=== PATIENT | female | born 1980 | race Caucasian/White ===

== ENCOUNTER 2018-05-01 15:17 | Outpatient (REF) | payer MEDICAID, SELFPAY ==
[2018-05-04 14:25] LABS: Chlamydia Result Negative; GC Result Negative; Specimen Description CERVIX
== END 2018-05-01 15:37 ==
LOC: LBN 15:17
PROVIDERS: PCP Family Medicine; Visit Provider Nurse Practitioner Women's Health
DX: Z11.3 Encounter for screening for infections with a predominantly sexual mode of transmission (principal)
CPT/HCPCS: 87491; 87591

== ENCOUNTER 2018-05-12 01:10 | Outpatient (CLI) | payer MEDICAID, SELFPAY ==
--- NOTE | 2018-05-12 13:53 | DI.US_ITS ---
SYMPTOMS/DIAGNOSIS: PELVIC PAIN, R10.2 PELVIC ULTRASOUND: Pelvic ultrasound was performed transabdominally and transvaginally. Please see the accompanying data sheet for measurements of the pelvic structures. There are a couple of questionable echogenic foci in the right kidney, which may represent nonobstructing calculi. No evidence of hydronephrosis. Left kidney unremarkable in appearance by ultrasound criteria. The ovaries have a normal follicular appearance. Uterus is unremarkable in appearance except for a questionable myometrial deformity consistent with old scar, please correlate clinically. Endometrial stripe is about 5 mm in thickness and appears homogeneous. No free fluid identified in the cul-de-sac. CONCLUSION: Essentially negative pelvic ultrasound. Probable nonobstructing right renal calculi.
== END 2018-05-12 01:30 ==
PROVIDERS: PCP Family Medicine; Visit Provider Nurse Practitioner Women's Health
DX: R10.2 Pelvic and perineal pain (principal); N20.0 Calculus of kidney
CPT/HCPCS: 76830; 76856

== ENCOUNTER 2019-03-12 14:21 | Outpatient (REF) | payer MEDICAID, SELFPAY ==
[2019-03-15 15:02] LABS: Chlamydia Result Negative (Negative); GC Result Negative (Negative)
== END 2019-03-12 14:41 ==
LOC: LBN 14:21
PROVIDERS: PCP Family Medicine; Visit Provider Nurse Practitioner Family
DX: Z11.3 Encounter for screening for infections with a predominantly sexual mode of transmission (principal)
CPT/HCPCS: 87491; 87591

== ENCOUNTER 2020-05-26 16:53 | Outpatient (REF) | payer MEDICAID, SELFPAY | END 2020-05-26 16:54 | disposition home or self-care (01) | LOC: LBN 16:53 | PROVIDERS: PCP Family Medicine; Visit Provider Nurse Practitioner Family | DX: R31.9 Hematuria, unspecified (principal) | CPT/HCPCS: 87086 ==

== ENCOUNTER 2020-06-02 12:19 | Outpatient (REF) | payer MEDICAID, SELFPAY ==
--- NOTE | 2020-06-02 11:30 | PAPFT_PTH ---
PATIENT: Karla Koenig LOC: [facility] U#:[id number] AGE/SX: 39/F ROOM: RE06/02/[address]: JERMAINE Bustamante : 1980 BED: DIS: 06/02/2020 SPEC #: [id number] RECD: 06/02/20 12:52 STATUS: [place] REQ #: [id number] SILVESTRE: 06/02/20 11:[address]: Geno Delgado DEPT: [facility] Cytology RECD BY: Naomie Cope ENTERED: 06/02/20 12:52 SP TYPE: PAPFT OTHR DR: Pawan Rivera Tissues: 1 - CX/ENDOCX FOR PAP SMEARS Procedures: PAP THIN PREP/UVM Screening HPV DNA PROBE Comments: [id number]
[2020-06-02 14:06] LABS: Bacteria Few HPF (Negative); C & S Indicated? No/Sq. Contamination; Casts Negative LPF (Negative); Crystals Many Amorphous HPF (Negative); Epithelial Cells Many HPF (Negative); Mucus Heavy (Negative); RBC 0-2 HPF (0-2); WBC 0-2 HPF (0-5)
== END 2020-06-02 12:20 | disposition home or self-care (01) ==
LOC: LBN 12:19
PROVIDERS: PCP Family Medicine; Visit Provider Nurse Practitioner Family
DX: R80.9 Proteinuria, unspecified (principal); Z12.4 Encounter for screening for malignant neoplasm of cervix; Z11.51 Encounter for screening for human papillomavirus (HPV)
CPT/HCPCS: 88142; 81015; 87624

== ENCOUNTER 2020-06-23 04:42 | Outpatient (CLI) | payer MEDICAID, SELFPAY ==
--- NOTE | 2020-06-23 08:45 | DI.MAMMO_ITS ---
Exam(s) MAMMO SCREENING EXAM: MAMMO SCREENING CLINICAL HISTORY: screening,z12.39 TECHNIQUE: Bilateral full field digital CC and MLO mammographic images were obtained with 3D tomosyn thesis and utilizing computer aided detection (CAD). COMPARISON: This is a baseline examination. FINDINGS: Masses/Architectural Distortion: None seen. Microcalcifications: No suspicious pleomorphic-type are seen. Skin Thickening/Nipple Retraction: None. IMPRESSION: 1. No specific features of malignancy noted. 2. Unless there is more urgent need, screening mammography is recommended, as per [employer] guidelines. BI-RADS Category 1 - Negative Breast Density - Category B - Scattered areas of fibroglandular density Breast density category C or D implies that the patient has dense breast tissue. Dense breast tissue is very common and is not abnormal but dense breast tissue can make it harder to find cancer on a ma mmogram. Also, dense breast tissue may increase their breast cancer risk. This information about the result of the mammogram report was provided to the patient to raise their awareness. Use this report when you speak with the patient about their risks for breast cancer, which includes their family hist ory. At that time, you may recommend for more screening tests (Ultrasound or MRI) as they might be us eful based on their risk. A negative radiographic report should not delay biopsy if a dominant or clinically suspicious mass is present. Up to ten percent of cancers are not identified on mammography. A negative report may reinforce clinical impression. Adenosis and dense breasts may obscure an underlying neoplasm. False positive reports average 6 to 10%. Patient will receive a letter notifying them of these results.
== END 2020-06-23 05:02 ==
PROVIDERS: PCP Family Medicine; Visit Provider Nurse Practitioner Family
DX: Z12.31 Encounter for screening mammogram for malignant neoplasm of breast (principal)
CPT/HCPCS: 77063; 77067

== ENCOUNTER 2022-01-16 03:37 | Outpatient (CLI) | payer MEDICAID, SELFPAY ==
[2022-01-16 13:51] LABS: HCT 43.9 % (36.0-46.0); HGB 14.3 g/dL (11.2-15.7); MCH 29.4 pg (27.0-33.0); MCHC 32.6 % (32.0-36.0); MCV 90 fL (80-95); MPV 11.5 fL (8.0-11.0); Platelet Count 236 10^3/uL (130-400); RBC 4.87 10^6/uL (3.93-5.22); RDW 12.7 % (11.7-14.6); RDW-SD 41.5 fL; WBC 7.51 10^3/uL (4.4-10.8)
[2022-01-16 15:10] LABS: ALT 30 U/L (14-59); AST 17 U/L (15-37); Albumin 4.2 g/dL (3.4-5.0); Alkaline Phosphatase 77 U/L (46-116); Anion Gap 9.3 mmol/L (3-11); BUN 17 mg/dL (7-18); Bilirubin, Total 0.4 mg/dL (0.2-1.0); CO2 27.7 mmol/L (21.0-32.0); CREATININE 0.8 mg/dL (0.55-1.02); Calcium 9.3 mg/dL (8.5-10.1); Calculated LDL 103 mg/dL (<100); Chloride 101 mmol/L (98-107); Cholesterol 211 mg/dL (<200); Estimated GFR 94.28 (mL/min/1.73m2); Glucose 111 mg/dL (74-106); HDL Cholesterol 55 mg/dL (40-60); Potassium 3.7 mmol/L (3.5-5.1); Sodium 138 mmol/L (136-145); Total Protein 7.8 g/dL (6.4-8.2); Triglyceride 265 mg/dL (<150)
== END 2022-01-16 03:38 | disposition home or self-care (01) ==
LOC: LBO 03:37
PROVIDERS: Visit Provider Obstetrics & Gynecology Gynecology
DX: R53.83 Other fatigue (principal); R63.5 Abnormal weight gain; R03.0 Elevated blood-pressure reading, without diagnosis of hypertension; E78.89 Other lipoprotein metabolism disorders
CPT/HCPCS: 36415; 80053; 80061; 85027; 84443

== ENCOUNTER 2024-12-27 22:32 | Observation (INO) | payer BC, SELFPAY ==
[2024-12-27 22:35] VITALS: BP 198/122; PULSE 89; RESP 21; TEMP 36.4; O2SAT 96
[2024-12-27 22:39] VITALS: BP 200/112; PULSE 84; RESP 18; O2SAT 97
--- NOTE | 2024-12-27 23:02 | NUR.NOTE ---
Nursing Note: Patient reports that she was seen at [facility] on 12/25/24 when dog bite initially occurred. Patient further reports that [facility] took all of the information regarding the dog and reported it to the Health officer.
[2024-12-27] MEDS: Ketorolac 15 MG/ML VIAL IVP (23:39)
[2024-12-27] MEDS: Normal Saline 1,000 ML 1000 ML IV (23:40)
[2024-12-27] MEDS: ACETAMINOPHEN 1,000 MG/100 ML BAG 400 MG IVPB (23:40)
[2024-12-27] MEDS: CLINDAMYCIN 600 MG/50 ML BAG 100 MG IVPB (23:41)
[2024-12-27 23:47] LABS: Abs Immature Grans 0.06 10^3/uL (0.0-0.06); HCT 42.9 % (36.0-46.0); HGB 14.2 g/dL (11.2-15.7); Immature Grans % 0.5 %; MCH 29.7 pg (27.0-33.0); MCHC 33.1 % (32.0-36.0); MCV 90 fL (80-95); MPV 11.4 fL (8.0-11.0); Platelet Count 238 10^3/uL (130-400); RBC 4.78 10^6/uL (3.93-5.22); RDW 13.2 % (11.7-14.6); RDW-SD 43.1 fL; WBC 11.68 10^3/uL (4.4-10.8)
[2024-12-28] VITALS (9 sets, daily range): BP systolic 136–177; BP diastolic 88–111; PULSE 66–85; RESP 17–19; TEMP 36–37.1; O2SAT 96–100
--- NOTE | 2024-12-28 00:09 | ED.GENADUL_ITS ---
Discharge Plan Disposition Patient Disposition: Admit to [facility] Condition: Good Discharge Details Clinical Impression: Cellulitis of arm, left, Dog bite of arm Primary Care Provider: Geno Whitfield ED Provider: Christofer Browning Home Meds and New Rx's Prescriptions: No Action albuterol sulfate 90 mcg/actuation HFA aerosol inhaler 2 puff IH Q6H PRN Mirena 20 mcg/24 hours (5 yrs) 52 mg intrauterine device 1 device IY ONCE fluticasone propion-salmeterol [Advair HFA] 115-21 mcg/actuation HFA aerosol inhaler See Rx Instructions .ROUTE .COMPLEX Qty: 12 4RF Dose Instruction: INHALE 2 PUFFS BY MOUTH TWICE DAILY NEEDED FOR ASTHMA EXACERBATION Rx Instructions: INHALE 2 PUFFS BY MOUTH TWICE DAILY NEEDED FOR ASTHMA EXACERBATION chlorthalidone 15 mg tablet 30 mg PO DAILY Qty: 90 2RF multivitamin [Multi-Day] 1 EACH tablet 1 tab PO DAILY doxycycline hyclate 100 mg capsule 100 mg PO BID HPI General Date/Time Provider Initiated Documentation: 12/27/24 22:45 . HPI Narrative: This is a very pleasant 44-year-old female with a past medical history of hypertension, asthma, who presents today for a dog bite. Patient was at a friend's house 72 hours ago on Friday when a dog accidentally bit her arm on the left. She was seen that evening at [facility]. Tetanus is up to date. She was assessed, and because of the dog bite and her allergies to Augmentin (which was documented hives) she was very reasonably started on doxycycline. She received a dose in the emergency department, and then she had an oral dose for the morning of Friday. Unfortunately because of her pharmacy not being able to fill it she did not receive any nighttime dose. Her antibiotic and started taking the doxycycline as prescribed. she noticed worsening redness on Friday in the afternoon, and went back to [facility] where she received ceftriaxone and metronidazole IV. This was at 3 PM. She went home, and over the next 78 hours the redness significantly worsened and spread past where it had previously been in been marked while in the ED. She had no fever or chills. She has also noticed development of pain when she moves her wrist or moves her fingers. She denies any other complaints. No other modifying factors. She has taken occasional NSAID therapy as prescribed. Patient was recommended to have a longer doxycycline course considering the worsening infection. There is no evidence of additional prescribed antibiotics at this stage so. Of note the dog's rabies vaccine is up-to-date, the dog had no other concerning past medical history. Related Data Home Medications Medication Instructions Recorded Confirmed multivitamin (Multi-Day tablet) 1 tab PO DAILY 7 12/27/24 albuterol sulfate 90 mcg/actuation 2 puff inhalation Q 6H PRN 03/12/19 12/27/24 aerosol inhaler levonorgestrel (Mirena) 1 device intrauterine ONCE 0 04/05/19 12/27/24 fluticasone propionate 115 See Rx Instructions .Route 02/20/22 12/27/24 mcg-salmeterol 21 mcg/actuation .COMPLEX #12 grams HFA inhaler (Advair HFA) chlorthalidone 15 mg tablet 30 mg (2 x 15 mg) PO DAILY #90 tabs 04/05/22 12/27/24 Held on 12/27/24. Instructions: Prescription Finished doxycycline hyclate 100 mg capsule 100 mg PO BID 12/2712/27/24 Previous Rx's Medication Instructions Recorded fluticasone propionate 115 See Rx Instructions .Route 02/20/22 mcg-salmeterol 21 mcg/actuation .COMPLEX #12 grams HFA inhaler (Advair HFA) chlorthalidone 15 mg tablet 30 mg (2 x 15 mg) PO DAILY #90 tabs 04/05/22 Held on 12/27/24. Instructions: Prescription Finished Allergies Allergy/AdvReac Type Severity Reaction Status Date / Time Iodinated Contrast Media Allergy Severe Anaphylaxis Verified 12/27/24 22:44 sulfamethoxazole (From Allergy Intermediate hives Verified 12/27/24 22:44 Bactrim) trimethoprim (From Bactrim) Allergy Intermediate hives Verified 12/27/24 22:44 amoxicillin (From Augmentin) AdvReac Intermediate Hives Verified 12/27/24 22:44 clavulanic acid (From AdvReac Intermediate Hives Verified 12/27/24 22:44 Augmentin) nitrofurantoin AdvReac Intermediate Hives Verified 12/27/24 22:44 Sulfa (Sulfonamide AdvReac Intermediate Hives Verified 12/27/24 22:44 Antibiotics) Oysters AdvReac Intermediate Vomitting Uncoded 12/27/24 22:44 Scallops AdvReac Mild Itchy Uncoded 12/27/24 22:44 Throad & Mouth General Stated Complaint: AnimalBite RICHIE: 3 Exam Narrative Exam Narrative: 1.Const: Well-nourished, Well-developed, appearing stated age 2.Eyes: PERRL, no conjunctival injection, and symmetrical lids. 3.ENT: Atraumatic external nose and ears. Moist MM. Neck: Symmetric, trachea midline, No thyromegaly. 4.CVS: +S1/S2, Peripheral pulses 2+ and equal in all extremities. Brisk capillary refill in all extremities. 5.RESP: Unlabored respiratory effort. Clear to auscultation bilaterally. No wheezes rales or rhonchi 6.GI: Soft, Nontender/Nondistended, No hepatosplenomegaly. No guarding or rebound. 7.MSK: Patient demonstrates a hand held in normal position, no passive flexed positioning. Mild tenderness throughout the forearm over the areas of erythema. Normal heavy lift rigger strength however pain is notably elicited with maximum extension of the fingers and wrist. No sausage shaped digits. 8.Skin: Warm, Dry. Ventral left forearm demonstrates subcentimeter laceration with no active oozing. 2 small puncture wounds on the dorsal aspect of the forearm with no oozing or discharge. Additionally there is notable erythema throughout the ventral aspect of the forearm traveling up the forearm and past the aforementioned markings done at [facility]. Dimensions are roughly 5 cm x 9 cm. 9.Neuro: rehabilitation program coordinator II-XII grossly intact. Sensation grossly intact, no focal neurologic deficits. 10.Psych: (AAO) x3. Appropriate mood and affect Course Vital Signs Vital signs: Vital Signs Temperature 36.4 C 12/27/24 22:35 Pulse 89 12/27/24 22:35 Respiratory Rate 21 12/27/24 22:35 Blood Pressure 198/122 H 12/27/24 22:35 Pulse Oximetry 96 12/27/24 22:35 Temperature 36.4 C 12/27/24 22:35 Temperature Source Oral 12/27/24 22:35 Pulse 84 12/27/24 22:39 Respiratory Rate 18 12/27/24 22:39 Blood Pressure 200/112 H 12/27/24 22:39 Blood Pressure Position Sitting 12/27/24 22:39 Pulse Oximetry 97 12/27/24 22:39 Oxygen Delivery Method Room Air 12/27/24 22:39 Oxygen Flow Rate 0 12/27/24 22:35 Pain Level 2 12/27/24 22:39 Lab/Test Results Lab/Test Results: 12/27/24 23:38 Blood Blood Culture - Pending 12/27/24 23:30 Blood Blood Culture - Pending Laboratory Tests Range/Units 12/27/24 23:38 WBC (4.4-10.8) 10^3/uL 11.68 H RBC (3.93-5.22) 10^6/uL 4.78 Hgb (11.2-15.7) g/dL 14.2 Hct (36.0-46.0) % 42.9 MCV (80-95) fL 90 MCH (27.0-33.0) pg 29.7 MCHC (32.0-36.0) % 33.1 RDW (11.7-14.6) % 13.2 Plt Count (130-400) 10^3/uL 238 MPV (8.0-11.0) fL 11.4 H Immature Gran % % 0.5 Neutrophils % % 68.8 Lymphocytes % % 17.7 Monocytes % % 6.5 Eosinophils % % 5.6 Basophils % % 0.9 Nucleated RBC % (0.0-0.3) % 0.0 Absolute Neutrophils (1.2-6.7) 10^3/uL 8.04 H Absolute Lymphocytes (1.2-3.4) 10^3/uL 2.07 Absolute Monocytes (0.1-0.8) 10^3/uL 0.76 Absolute Eosinophils (0.0-0.7) 10^3/uL 0.65 Absolute Basophils (0.0-0.2) 10^3/uL 0.11 VBG Lactate (<or=2.0) mmol/L 0.9 Medical Decision Making This is a very pleasant 44-year-old female with a past medical history of hypertension, asthma, who presents today for a dog bite. Patient was at a friend's house 72 hours ago on Friday when a dog accidentally bit her arm on the left. She was seen that evening at [facility]. Tetanus is up to date. She was assessed, and because of the dog bite and her allergies to Augmentin (which was documented hives) she was very reasonably started on doxycycline. She received a dose in the emergency department, and then she had an oral dose for the morning of Friday. Unfortunately because of her pharmacy not being able to fill it she did not receive any nighttime dose. Her antibiotic and started taking the doxycycline as prescribed. she noticed worsening redness on Friday in the afternoon, and went back to [facility] where she received ceftriaxone and metronidazole IV. This was at 3 PM. She went home, and over the next 78 hours the redness significantly worsened and spread past where it had previously been in been marked while in the ED. She had no fever or chills. She has also noticed development of pain when she moves her wrist or moves her fingers. She denies any other complaints. No other modifying factors. She has taken occasional NSAID therapy as prescribed. Patient was recommended to have a longer doxycycline course considering the worsening infection. There is no evidence of additional prescribed antibiotics at this stage so. Of note the dog's rabies vaccine is up-to-date, the dog had no other concerning past medical history. Patient demonstrates a hand held in normal position, no passive flexed positioning. Mild tenderness throughout the forearm over the areas of erythema. Normal heavy lift rigger strength however pain is notably elicited with maximum extension of the fingers and wrist. No sausage shaped digits. Warm, Dry. Ventral left forearm demonstrates subcentimeter laceration with no active oozing. 2 small puncture wounds on the dorsal aspect of the forearm with no oozing or discharge. Additionally there is notable erythema throughout the ventral aspect of the forearm traveling up the forearm and past the aforementioned markings done at [facility]. Dimensions are roughly 5 cm x 9 cm. Concern is certainly for infection, there is clear evidence of cellulitis that appears to be resistant to both the doxycycline ceftriaxone and metronidazole with the worsening cellulitis and erythema. While the patient does not demonstrate evidence of flexor or extensor tenosynovitis at this time, I do feel that the patient is certainly at risk for developing this if the infection does not have improvement to treatment. With the failure for outpatient antibiotic therapy, especially considering the patient's limited antibiotic choices for the dog bite because of her allergies, I do feel that escalation and transition to clindamycin and Cipro is indicated. We will give these IV. I do feel that IV antibiotics and admission for 24 to 48 hours is indicated especially with her symptomatology and clinical course so far. Will reach out to the hospitalist for admission. Laboratory workup shows white count of 11.6, lactate is normal. Discussed case with hospitalist Dr. Millan, he agrees with the assessment and plan. Patient has received the IV antibiotics of clindamycin and Cipro. I have extensively reviewed the treatment plan with the patient. I have addressed all patient concerns at this time. I have also discussed the plan with the admitting physician and they agree with the current assessment and plan and have agreed to assume responsibility for the patient. All parties demonstrate verbal understanding and agreement with our assessment and plan at this time. The documentation in this chart was dictated using [employer] dictation software. Please excuse any dictation errors. PFSH All Active Problems (Updated 12/28/24 @ 00:54 by Christofer Browning DO) Dog bite of arm (Acute) Cellulitis of arm, left (Acute) HTN (hypertension) (Chronic) Mild intermittent asthma in adult without complication (Acute) 12/2021. MDI Changed to Bedosonide-Formaterol Weight gain (Acute) Fatigue (Acute) IUD (intrauterine device) in place (Acute) 04/05/2019. Mirena IUD inserted. S/P section (Acute 05/25/14) Asthma (Chronic) H/O urinary stone (Chronic) H/O surgical procedure (Chronic) a. scarless breast reductin b. 05/17/2014 Anxiety (Chronic) Medical History (Updated 12/28/24 @ 00:54 by Christofer Browning DO) Blood pressure elevated without history of HTN (04/26/14) Asthma Diagnosed as and up through college years . Uses rescue inhaler very rarely Hypertension about 5-6yrs ago was Rx for a time then BP normalized and she stopped the Rx . Was due to Stress . Surgical History (Updated 05/01/18 @ 13:00 by Tarah Jimenez NP) Elective bilateral breast reduction with Liposuction 2002 Social History Smoking/Tobacco Use Status: Never Smoking risk assessment performed?: Yes Alcohol Intake: current Alcohol Intake frequency: a few times a week Alcohol type: beer, wine and hard liquor Drug use: Never Substance use type: does not use Housing: house Do you feel safe at home: Yes Do you feel safe in your relationship?: Yes Female Reproductive History Menstrual control method: progestin IUCD (Mirena Lot#[id number] EXP APR 2021) and condoms History History 1 Para 1 Hx # Term Pregnancies Multiple births Hx # Pregnancies Ectopic pregnancies AB induced Hx Number of Living Children AB spontaneous
[2024-12-28 00:12] LABS: ALT 40 U/L (14-59); AST 29 U/L (15-37); Albumin 3.9 g/dL (3.4-5.0); Alkaline Phosphatase 102 U/L (46-116); Anion Gap 9.1 mmol/L (3-11); BUN 15 mg/dL (7-18); Bilirubin, Total 0.5 mg/dL (0.2-1.0); CO2 27.9 mmol/L (21.0-32.0); Calcium 8.7 mg/dL (8.5-10.1); Chloride 99 mmol/L (98-107); Glucose 96 mg/dL (74-106); Potassium 3.6 mmol/L (3.5-5.1); Sodium 136 mmol/L (136-145); Total Protein 8.2 g/dL (6.4-8.2)
[2024-12-28 00:22] LABS: Procalcitonin < 0.10 ng/mL
[2024-12-28] MEDS: CIPROFLOXACIN 400 MG/200 ML BAG 200 MG IVPB ×2 (00:28→14:02)
--- NOTE | 2024-12-28 00:49 | W.PM.HP.N ---
Date of service: 12/28/24 Time of Service: 00:49 Assessment and Plan Assessment and plan (1) Cellulitis of arm, left: Start date: 12/25/24 Status: Acute Assessment and plan: This is a 44-year-old lady with a dog bite becoming secondarily infected rather quickly despite outpatient evaluation and treatment with oral doxycycline. There is no evidence of tenosynovitis so the puncture wound over the radial aspect of her forearm was most tender and along that extensor tendon area. She is already improving on IV clindamycin and ciprofloxacin. Continue IV antibiotic therapy converted to oral therapy as she improves. Most likely will not become abscess or require intervention for the next 24 hours will be telling she is a full code. (2) Dog bite of arm: Start date: 12/28/24 Status: Acute Assessment and plan: No indication for sutures over the small laceration but the dog involved being fully immunized. He was blind and was startled by the patient when she was bit. This was her friend's dog and does not appear to be a reason for further investigation. (3) HTN (hypertension): Status: Chronic Assessment and plan: Uncontrolled with question patient being off chlorthalidone. Patient will be given 25 mg now and then daily. She will follow-up with her PCP as long-term dosing. She did have problems with hypotension after with her daughter years ago. (4) Asthma: Assessment and plan: Continue outpatient control therapy and rescue therapy as needed. This does not appear to be exacerbated with her acute infection. History of Present Illness History of Present Illness Chief Complaint: Dog bite 2 days ago presenting with worsening cellulitis despite antibiotic Narrative: This is a 44-year-old female patient who was bitten on the left dorsal forearm late Friday by a blind [place] which was her friend's pet. This was a provoked bite and the friend's dog's immunizations are up-to-date. She was seen at [facility] that day and was initiated on oral doxycycline. She has small laceration/puncture wounds from the bite. She was not able to get her oral medications by prescription to continue treatment the next day after a morning dose and returned to [facility] that evening with increased pain and redness with swelling at which time she received IV Rocephin and metronidazole with continuation of the oral doxycycline but on an extended dosing schedule. The redness and swelling around the wound worsened rather than improving prompting visit to this ED. She was evaluated as having failed outpatient therapy for a secondary infection from a dog bite and was initiated on IV clindamycin with ciprofloxacin. He will be admitted for observation and continue treatment with IV antibiotics until she shows improvement of the increasing erythematous area which is over the forearm and extending toward the elbow. There is no sign of tenosynovitis, fasciitis or sepsis at the time of the evaluation in the ED but she is slightly tender over the same area of inflammation of the dorsal lateral forearm when she opens her hand widely with most tender aspect over the radial puncture wound. She is a full code. Review of Systems Narrative: 13 point review of systems otherwise unrevealing or stable. Patient is overweight since her and this is stable. PFSH All Active Problems (Updated 12/28/24 @ 01:34 by Oscar Millan) Dog bite of arm (Acute) Cellulitis of arm, left (Acute) HTN (hypertension) (Chronic) Mild intermittent asthma in adult without complication (Acute) 12/2021. MDI Changed to Bedosonide-Formaterol Weight gain (Acute) Fatigue (Acute) IUD (intrauterine device) in place (Acute) 04/05/2019. Mirena IUD inserted. S/P section (Acute 05/25/14) Asthma (Chronic) H/O urinary stone (Chronic) H/O surgical procedure (Chronic) a. scarless breast reductin b. 05/17/2014 Anxiety (Chronic) Medical History Blood pressure elevated without history of HTN (04/26/14) Asthma Diagnosed as infant and up through college years . Uses rescue inhaler very rarely Hypertension about 5-6yrs ago was Rx for a time then BP normalized and she stopped the Rx . Was due to Stress . Surgical History Elective bilateral breast reduction with Liposuction 2002 Social History Smoking/Tobacco Use Status: Never Smoking risk assessment performed?: Yes Alcohol Intake: current Alcohol Intake frequency: a few times a week Alcohol type: beer, wine and hard liquor Drug use: Never Substance use type: does not use Housing: house Do you feel safe at home: Yes Do you feel safe in your relationship?: Yes Female Reproductive History Menstrual control method: progestin IUCD (Mirena Lot#[id number] EXP APR 2021) and condoms History History 1 Para 1 Hx # Term Pregnancies Multiple births Hx # Pregnancies Ectopic pregnancies AB induced Hx Number of Living Children AB spontaneous Meds Allergies and Home Medications Allergies Allergy/AdvReac Type Severity Reaction Status Date / Time Iodinated Contrast Media Allergy Severe Anaphylaxis Verified 12/27/24 22:44 sulfamethoxazole (From Allergy Intermediate hives Verified 12/27/24 22:44 Bactrim) trimethoprim (From Bactrim) Allergy Intermediate hives Verified 12/27/24 22:44 amoxicillin (From Augmentin) AdvReac Intermediate Hives Verified 12/27/24 22:44 clavulanic acid (From AdvReac Intermediate Hives Verified 12/27/24 22:44 Augmentin) nitrofurantoin AdvReac Intermediate Hives Verified 12/27/24 22:44 Sulfa (Sulfonamide AdvReac Intermediate Hives Verified 12/27/24 22:44 Antibiotics) Oysters AdvReac Intermediate Vomitting Uncoded 12/27/24 22:44 Scallops AdvReac Mild Itchy Uncoded 12/27/24 22:44 Throad & Mouth Home Medications Medication Instructions Recorded Confirmed Type multivitamin (Multi-Day tablet) 1 tab PO DAILY 05/22/16 12/27/24 History albuterol sulfate 90 mcg/actuation 2 puff inhalation Q6H PRN 03/12/19 12/27/24 History aerosol inhaler levonorgestrel (Mirena) 1 device intrauterine ONCE 04/05/19 12/27/24 History fluticasone propionate 115 See Rx Instructions .Route 02/20/22 12/27/24 Rx mcg-salmeterol 21 mcg/actuation .COMPLEX #12 grams HFA inhaler (Advair HFA) chlorthalidone 15 mg tablet 30 mg (2 x 15 mg) PO DAILY #90 tabs 04/05/22 12/27/24 Rx Held on 12/27/24. Instructions: Prescription Finished doxycycline hyclate 100 mg capsule 100 mg PO BID 12/27/24 12/27/24 History Exam Narrative Exam Narrative: General: Patient appears appropriate for age, in no acute distress, moderately obese, alert and oriented x 3. HEENT: Normocephalic, eyes with pupils equal and reactive to light symmetrically, extraocular movement intact and sclera anicteric. Oropharynx with moist mucosa and good dentition. Neck: Supple without JVD. Back: Normal posture without CVA tenderness. Lungs: Clear to auscultation percussion with no focalizing rales or rhonchi. No expiratory wheeze. Clear vesicular breath sounds. Breast: Exam deferred. Heart: Regular rate and rhythm with no murmurs or gallops appreciated. Abdomen: Obese contour, soft and nontender to palpation with no palpable hepatosplenomegaly. Bowel sounds positive all quadrants. Genitalia/rectal: Exam deferred. Extremities: Without clubbing, cyanosis or pitting edema. Left forearm has just over 1 cm laceration with exposed subcu fat but no drainage, there are 3 puncture wounds over the forearm with 2 over the dorsal aspect and 1 over the dorsal lateral or radial aspect. There is surrounding erythema which was marked and slightly decreased since admission and IV antibiotic therapy. There is swelling with erythema and increased warmth over the dorsal lateral puncture wound which was most tender and swollen with erythema just prior to admission. Peripheral pulses intact. Skin: Erythema with puncture wounds and laceration over left forearm otherwise no lesions, normal color, warm and dry. Neuro: Cranial nerves II through XII gross intact, no focalizing motor deficits. No tremor. Psych: Normal affect and mood. Normal thought processes. Remote and recent memory intact. Results Labs 12/27/24 23:38 12/27/24 23:38 Labs: Laboratory Results - last 24 hr 12/27/24 23:38 WBC 11.68 H RBC 4.78 Hgb 14.2 Hct 42.9 MCV 90 MCH 29.7 MCHC 33.1 RDW 13.2 Plt Count 238 MPV 11.4 H Immature Gran % 0.5 Neutrophils % 68.8 Lymphocytes % 17.7 Monocytes % 6.5 Eosinophils % 5.6 Basophils % 0.9 Nucleated RBC % 0.0 Absolute Neutrophils 8.04 H Absolute Lymphocytes 2.07 Absolute Monocytes 0.76 Absolute Eosinophils 0.65 Absolute Basophils 0.11 VBG Lactate 0.9 Sodium 136 Potassium 3.6 Chloride 99 Carbon Dioxide 27.9 Anion Gap 9.1 BUN 15 Creatinine 0.6 Est GFR (CKD-EPI 2020) 112.73 Glucose 96 Calcium 8.7 Total Bilirubin 0.5 AST 29 ALT 40 Alkaline Phosphatase 102 Total Protein 8.2 Albumin 3.9 Procalcitonin < 0.10 Last Vital Signs Temp 36.4 C 12/27/24 22:35 Pulse 84 12/27/24 22:39 Resp 18 12/27/24 22:39 BP 200/112 H 12/27/24 22:39 Pulse Ox 97 12/27/24 22:39 Time Spent Time spent with Patient: 55-74 minutes Time was spent: preparing to see the patient(eg.review tests), obtaining and/or reviewing separately otained hiistory, ordering medications,tests, procedures, indepentently interpreting results and counseling the patient
[2024-12-28] MEDS: Chlorthalidone 25 MG TAB PO ×2 (01:44→09:07)
--- NOTE | 2024-12-28 01:49 | W.PC.ACHO ---
Registration Status: REG ER Primary Language: Preferred Language: Armenian ED Information & Data Chief Complaint AnimalBite 12/28/24 00:20 Triage Note Pt rec'd dog bite t R 12/27/24 22:35 forearm 12/25 evening. Was seen and treated at [facility]. Here today for worsening redness and swelling from bite site. Denies fever/ chills. Medical / Surgical History (Last Reviewed 12/28/24 @ 00:59 by Oscar Millan) Asthma Blood pressure elevated without history of HTN (04/26/14) Hypertension (Last Reviewed 12/28/24 @ 00:59 by Oscar Millan) Elective bilateral breast reduction with Liposuction Most Recent Vital Signs Temperature 36.4 C L 12/28/24 01:13 Temperature Source Temporal Artery Scan 12/28/24 01:13 Pulse 76 12/28/24 01:13 Respiratory Rate 18 12/28/24 01:13 Blood Pressure 177/109 H 12/28/24 01:13 Blood Pressure Mean 131 12/28/24 01:13 Blood Pressure Position Sitting 12/27/24 22:39 Pulse Oximetry 99 12/28/24 01:13 Oxygen Delivery Method Room Air 12/28/24 01:13 Oxygen Flow Rate 0 12/28/24 01:13 Pain Level 2 12/27/24 22:39 Allergies Iodinated Contrast Media Allergy (Severe, Verified 12/27/24 22:44) Anaphylaxis sulfamethoxazole (From Bactrim) Allergy (Intermediate, Verified 12/27/24 22:44) hives trimethoprim (From Bactrim) Allergy (Intermediate, Verified 12/27/24 22:44) hives amoxicillin (From Augmentin) Adverse Reaction (Intermediate, Verified 12/27/24 22:44) Hives clavulanic acid (From Augmentin) Adverse Reaction (Intermediate, Verified 12/27/24 22:44) Hives nitrofurantoin Adverse Reaction (Intermediate, Verified 12/27/24 22:44) Hives Sulfa (Sulfonamide Antibiotics) Adverse Reaction (Intermediate, Verified 12/27/24 22:44) Hives Oysters Adverse Reaction (Intermediate, Uncoded 12/27/24 22:44) Vomitting Scallops Adverse Reaction (Mild, Uncoded 12/27/24 22:44) Itchy Throad & Mouth Precautions Isolation Standard precaution 12/27/24 22:39 IV IV Catheter Type [Right Saline Lock Antecubital] IV Catheter Gauge [Right 20 Antecubital] Diagnostics 12/28/24 12/27/24 Range/Units 01:25 23:38 WBC 11.68 H (4.4-10.8) 10^3/uL RBC 4.78 (3.93-5.22) 10^6/uL Hgb 14.2 (11.2-15.7) g/dL Hct 42.9 (36.0-46.0) % MCV 90 (80-95) fL MCH 29.7 (27.0-33.0) pg MCHC 33.1 (32.0-36.0) % RDW 13.2 (11.7-14.6) % Plt Count 238 (130-400) 10^3/uL MPV 11.4 H (8.0-11.0) fL Immature Gran % 0.5 % Neutrophils % 68.8 % Lymphocytes % 17.7 % Monocytes % 6.5 % Eosinophils % 5.6 % Basophils % 0.9 % Nucleated RBC % 0.0 (0.0-0.3) % Absolute Neutrophils 8.04 H (1.2-6.7) 10^3/uL Absolute Lymphocytes 2.07 (1.2-3.4) 10^3/uL Absolute Monocytes 0.76 (0.1-0.8) 10^3/uL Absolute Eosinophils 0.65 (0.0-0.7) 10^3/uL Absolute Basophils 0.11 (0.0-0.2) 10^3/uL VBG Lactate 0.9 (<or=2.0) mmol/L Sodium 136 (136-145) mmol/L Potassium 3.6 (3.5-5.1) mmol/L Chloride 99 (98-107) mmol/L Carbon Dioxide 27.9 (21.0-32.0) mmol/L Anion Gap 9.1 (3-11) mmol/L BUN 15 (7-18) mg/dL Creatinine 0.6 (0.55-1.02) mg/dL Est GFR (CKD-EPI 2020) 112.73 (mL/min/1.73m2) Glucose 96 (74-106) mg/dL Calcium 8.7 (8.5-10.1) mg/dL Total Bilirubin 0.5 (0.2-1.0) mg/dL AST 29 (15-37) U/L ALT 40 (14-59) U/L Alkaline Phosphatase 102 (46-116) U/L Total Protein 8.2 (6.4-8.2) g/dL Albumin 3.9 (3.4-5.0) g/dL Procalcitonin < 0.10 ng/mL COVID-19 Source Pending SARS-CoV-2 (PCR) Pending Influenza Type A (PCR) Pending Influenza Type B (PCR) Pending RSV (PCR) Pending 12/27/24 23:38 Blood Culture - Pending Blood 12/27/24 23:30 Blood Culture - Pending Blood Intake and Output - 24 Hour Total 12/27/24 22:32 thru 12/28/24 01:22 Intake Total 1350 Balance 1350 Weight 75.75 kg Intake: IV 1350 Falls Risk Assessment History of Falls No History 12/27/24 22:39 Contributing Factors No Factors 12/27/24 22:39 Ambulatory Aids Independent 12/27/24 22:39 Tubes/Lines None 12/27/24 22:39 Gait Evaluation No gait disturbance 12/27/24 22:39 Cognition No cognitive impairment 12/27/24 22:39 Fall Total Score 0 12/27/24 22:39 Level of Risk Standard/Low Risk 12/27/24 22:39 Problems (Last Reviewed 12/28/24 @ 00:59 by Oscar Millan) Cellulitis of arm, left (Acute) Dog bite of arm (Acute) HTN (hypertension) (Chronic) Notes 12/27/24 23:02 Nursing Notes by Dahiana Leavitt Nursing Note: Patient reports that [facility] when dog bite initially occurred. Patient further reports that [facility] took all of the information regarding the dog and reported it to the Health officer. Initialized on 12/27/24 23:02 - END OF NOTE Attestation Statement: By documenting the first initial, last name, and credentials of the reporting nurse below, both parties acknowledge that all relevant information regarding the patient handoff has been communicated, and that all questions have been addressed to ensure continuity and safety of care. Additional Patient Information/Comments: Paged 01:21, called for report 01:32. Pt arrived to ED reporting increasing redness and swelling after a dog bite to the L forearm several days ago. Pt originally went to [facility] and was prescribed doxycycline. Continued to see changes in margins of injury and redness with doxycycline, so came to [facility] ED. Received 400 cipro, 600 clindamycin, 15 Tordal, 1 g Tylenol IV, and 1 L NS in ED. Tachy in ED, systolic in 200s, normal sinus; most recent BP 177/109. O2 sat 95-99% on RA. Fully alert and independent. Pt has hx of HTN, asthma, and anxiety. Awaiting blood culture results. Pt arrived to floor Report Received From: Olive, ED RN
[2024-12-28 02:04] LABS: COVID-19 PCR Negative (Negative); RSV PCR Negative (Negative)
[2024-12-28] MEDS: CLINDAMYCIN 600 MG/50 ML BAG 100 MG IVPB ×4 (06:08→23:51)
[2024-12-28 06:49] LABS: HCT 39.1 % (36.0-46.0); HGB 13.1 g/dL (11.2-15.7); MCH 30.5 pg (27.0-33.0); MCHC 33.5 % (32.0-36.0); MCV 91 fL (80-95); MPV 11.5 fL (8.0-11.0); Platelet Count 236 10^3/uL (130-400); RBC 4.30 10^6/uL (3.93-5.22); RDW 13.2 % (11.7-14.6); RDW-SD 43.4 fL; WBC 8.14 10^3/uL (4.4-10.8)
[2024-12-28 07:24] LABS: ALT 36 U/L (14-59); AST 22 U/L (15-37); Albumin 3.3 g/dL (3.4-5.0); Alkaline Phosphatase 87 U/L (46-116); Anion Gap 9.4 mmol/L (3-11); BUN 9 mg/dL (7-18); Bilirubin, Total 0.6 mg/dL (0.2-1.0); CO2 26.6 mmol/L (21.0-32.0); Calcium 8.1 mg/dL (8.5-10.1); Chloride 103 mmol/L (98-107); Glucose 102 mg/dL (74-106); Magnesium 1.8 mg/dL (1.8-2.4); Potassium 3.0 mmol/L (3.5-5.1); Sodium 139 mmol/L (136-145); Total Protein 6.9 g/dL (6.4-8.2)
[2024-12-28] MEDS: Doxycycline Hyclate 100 MG CAP PO (09:07)
[2024-12-28] MEDS: Normal Saline Flush 10 ML SYR IVP ×5 (09:08→19:54)
[2024-12-28 09:46] LABS: Glucose Negative (Negative)
--- NOTE | 2024-12-28 09:53 | INITIAL_ITS ---
Date of service: 12/28/24 Time of Service: 09:53 Care Management Initial Assmt Initial Assessment Reason for Hospitalization: cellulitis of the arm - dog bite Functional Status/Living Situation Patient Presentation: Karla was sitting up in bed visiting with family and her significant other Dirk when CM met with her. She seemed to be in good spirits and easily engaged with CM. Karla lives in a single family home in [place] with her 10 year old daughter. She works as the Director of [employer] and is independent at baseline. Karla does not receive any community services and does not require any ambulatory aides. Karla was admitted with cellulitis that resulted from a dog bite. She was started on oral antibiotics as an outpatient but when she continued to deteriorate, she was admitted for IV antibiotics. Town of Residence: [place] Resides with: Child Significant Other/Family: [facility] Employment Status: Employed Instrumental Activities of Daily Living (ADLs): Independent Medications Medication Management: No Issues/Barriers identified Advance Directives Advance Directives: Do you have an Advance Directive: N , 13:59 AD On File at [facility]: N 10/29/12, 14:24 Date Asked 12/28/24 Today, 00:12 AD Date Reviewed COLST On File at [facility] No Today, 00:12 COLST Date Scanned Code Status Resuscitation Status Full Code Insurance Coverage/Financial Issues Insurance: / Care Team Visit Care Team Role Provider Type Leidy Lemon APRN MD [facility] STAFF PHYSICIAN Geno Whitfield Primary Care Provider NON-[facility] STAFF PHYSICIAN Christofer Browning DO Emergency Provider [facility] STAFF PHYSICIAN Oscar Millan Admit Provider NON-[facility] STAFF PHYSICIAN Attending Provider Discharge Potential Discharge Needs: PCP F/U Appt Anticipated Barriers to Discharge: None Identified Patient/Family Education Needs: Review discharge instructions, discuss Ask Me Three Transportation: Private vehicle Plan: Anticipate Karla will be discharged home with no new services when medically stable. She will follow up with her plan of care as prescribed and transport with a friend/family member. CM will follow and continue to support discharge pl anning. Social Determinants of Health Screening Social Determinants of health last assessed in clinic: 12/28/24 Will the Patient Participate in the Screening?: Yes Do you worry about having a steady place to live?: no Problems where you live: no known problems In the past 12 months, have you had to go without electric, gas, oil or water in your home?: no 1. Within the past 12 months, we worried whether our food would run out before we got money to buy more.: Never true 2. Within the past 12 months, the food we bought just didn't last and we didn't have money to get more.: Never true Has lack of transportation kept you from medical appointments or from doing things needed for daily living?: no Has anyone in your life made you feel unsafe or unsupported?: no How hard is it for you to pay for the very basics like food, housing, medical care, and heating? Would you say it is:: Not hard at all Do you want help finding or keeping work or a job?: I do not need or want help If for any reason you need help with day-to-day activities such as bathing, prep aring meals, shopping, managing finances, etc., do you get the help you need?: I get all the help I need How often do you feel lonely or isolated from those around you?: Rarely Do you speak a language other than Kinyarwanda at home?: No Does the patient want assistance with any of the above?: No Health Related Social Needs Health related social needs: feeling lonely/isolated (Z60.8) Health related social needs details: no needs PFSH All Active Problems (Updated 12/28/24 @ 01:34 by Oscar Millan) Dog bite of arm (Acute) Cellulitis of arm, left (Acute) HTN (hypertension) (Chronic) Mild intermittent asthma in adult without complication (Acute) 12/2021. MDI Changed to Bedosonide-Formaterol Weight gain (Acute) Fatigue (Acute) IUD (intrauterine device) in place (Acute) 04/05/2019. Mirena IUD inserted. S/P section (Acute 05/25/14) Asthma (Chronic) H/O urinary stone (Chronic) H/O surgical procedure (Chronic) a. scarless breast reductin b. 05/17/2014 Anxiety (Chronic) Medical History Blood pressure elevated without history of HTN (04/26/14) Asthma Diagnosed as and up through college years . Uses rescue inhaler very rarely Hypertension about 5-6yrs ago was Rx for a time then BP normalized and she stopped the Rx . Was due to Stress . Surgical History Elective bilateral breast reduction with Liposuction 2002 Social History Smoking/Tobacco Use Status: Never Smoking risk assessment performed?: Yes Alcohol Intake: current Alcohol Intake frequency: a few times a week Alcohol type: beer, wine and hard liquor Drug use: Never Substance use type: does not use Housing: house Do you feel safe at home: Yes Do you feel safe in your relationship?: Yes Female Reproductive History Menstrual control method: progestin IUCD (Mirena Lot#[id number] EXP APR 2021) and condoms History History 1 Para 1 Hx # Term Pregnancies Multiple births Hx # Pregnancies Ectopic pregnancies AB induced Hx Number of Living Children AB spontaneous
[2024-12-28 09:58] LABS: C & S Indicated? No; RBC 0-2 HPF (0-2)
--- NOTE | 2024-12-28 12:23 | PGE_ITS ---
Date of Service Date of service: 12/28/24 Time of Service: 12:23 Assessment and Plan Assessment and plan (1) Cellulitis of arm, left: Start date: 12/25/24 Status: Acute Assessment and plan: Infected dofg bite failing outpatient treatment with oral doxycycline. continue IV clindamycin and ciprofloxacin, transition to oral therapy at discharge . (2) Dog bite of arm: Start date: 12/28/24 Status: Acute Assessment and plan: Had a tetanus vaccine s/p dog bite , dog involved being fully immunized, no drainage (3) HTN (hypertension): Status: Chronic Assessment and plan: continue chlortholidone 25 mg daily. She will follow-up with her PCP as long- term dosing. She did have problems with hypotension after with her daughter years ago. (4) Asthma: Assessment and plan: patient mentioned being on albuterol only, educated on new guidelines for ICS LABA and recommendation to discuss budesonide/formoterol inhaler as rescue medicine with PCP On as needed albuterol Discussed with Dr. Serna Subjective Subjective Patient reports: pain is less, tolerating liquids well, tolerating a regular diet, voiding w/o difficulty, flatus, bowel movement (last 12/27), nausea, vomiting, shortness of breath and fever; denies diarrhea Exam Narrative Exam Narrative: 2 from dog scratch without induration, subcutaneous emphysema or 4-year-old female looking of stated age without acute distress neurologically intact unla bored breathing clear lungs S1-S2 regular abdomen is nondistended soft nontender, no CVA tenderness moves of extremities left upper forearm with mild erythema improving no drainage from puncture wounds from dog bite, right chest bruise from dog scratch w/o subcut emphysema, fluctuance or induration Objective Last Vital Signs Temp 36.5 C 12/28/24 11:19 Pulse 66 12/28/24 11:19 Resp 17 12/28/24 11:19 BP 139/88 12/28/24 11:19 Pulse Ox 97 12/28/24 11:19 Laboratory Results - last 24 hr 12/27/24 12/28/24 12/28/24 23:38 01:25 06:09 WBC 11.68 H 8.14 RBC 4.78 4.30 Hgb 14.2 13.1 Hct 42.9 39.1 MCV 90 91 MCH 29.7 30.5 MCHC 33.1 33.5 RDW 13.2 13.2 Plt Count 238 236 MPV 11.4 H 11.5 H Immature Gran % 0.5 Neutrophils % 68.8 Lymphocytes % 17.7 Monocytes % 6.5 Eosinophils % 5.6 Basophils % 0.9 Nucleated RBC % 0.0 Absolute Neutrophils 8.04 H Absolute Lymphocytes 2.07 Absolute Monocytes 0.76 Absolute Eosinophils 0.65 Absolute Basophils 0.11 VBG Lactate 0.9 Sodium 136 139 Potassium 3.6 3.0 L Chloride 99 103 Carbon Dioxide 27.9 26.6 Anion Gap 9.1 9.4 BUN 15 9 Creatinine 0.6 0.6 Est GFR (CKD-EPI 2020) 112.73 112.73 Glucose 96 102 Calcium 8.7 8.1 L Magnesium 1.8 Total Bilirubin 0.5 0.6 AST 29 22 ALT 40 36 Alkaline Phosphatase 102 87 Total Protein 8.2 6.9 Albumin 3.9 3.3 L Procalcitonin < 0.10 Urine Color Urine Clarity Urine pH Ur Specific [place] Urine Protein Urine Ketones Urine Blood Urine Nitrite Urine Bilirubin Urine Urobilinogen Ur Leukocyte Esterase Urine RBC Urine WBC Ur Epithelial Cells Urine Crystals Urine Bacteria Urine Casts Urine Mucus Ur Culture Indicated? Urine Glucose COVID-19 Source Nasopharynx SARS-CoV-2 (PCR) Negative Influenza Type A (PCR) Negative Influenza Type B (PCR) Negative RSV (PCR) Negative 12/28/24 09:20 WBC RBC Hgb Hct MCV MCH MCHC RDW Plt Count MPV Immature Gran % Neutrophils % Lymphocytes % Monocytes % Eosinophils % Basophils % Nucleated RBC % Absolute Neutrophils Absolute Lymphocytes Absolute Monocytes Absolute Eosinophils Absolute Basophils VBG Lactate Sodium Potassium Chloride Carbon Dioxide Anion Gap BUN Creatinine Est GFR (CKD-EPI 2020) Glucose Calcium Magnesium Total Bilirubin AST ALT Alkaline Phosphatase Total Protein Albumin Procalcitonin Urine Color Yellow Urine Clarity Sl Cloudy Urine pH 7.0 Ur Specific [place] 1.015 Urine Protein Negative Urine Ketones Negative Urine Blood Negative Urine Nitrite Negative Urine Bilirubin Negative Urine Urobilinogen 0.2 Ur Leukocyte Esterase Trace H Urine RBC 0-2 Urine WBC 3-5 Ur Epithelial Cells Moderate Urine Crystals Negative Urine Bacteria Few Urine Casts Negative Urine Mucus Negative Ur Culture Indicated? No Urine Glucose Negative COVID-19 Source SARS-CoV-2 (PCR) Influenza Type A (PCR) Influenza Type B (PCR) RSV (PCR) PAWSS Have you Been Recently Intoxicated or Drunk Within the Last 30 days?: Yes Have you Ever Experienced Previous Episodes of Alcohol Withdrawal?: No Have you ever Experienced Withdrawal Seizures?: No Have you ever Experienced Delirium Tremens(DT)s?: No Have you ever undergone Alcohol Rehabilitation Treatment (i.e, inpt ot outpatient treatment programs)?: No Have you ever Experienced Blackouts?: No Have you ever Combined Alcohol with other Downers within the last 90 days?: No Have you ever Combined Alcohol with any other Substance of Abuse during the last 90 days?: No Positive Blood Alcohol level on Presentation? [PCS.BAL]: No Evidence of Increased Autonomic Activity (i.e. HR>120, tremor, sweating, agitation, nausea)?: No Result: 1 Time Spent with Patient Time Spent with Patient: >50 minutes Time was spent: preparing to see the patient(eg.review tests), obtaining and/or reviewing separately otained hiistory, ordering medications,tests, procedures, referring, communicating with other health vision care associate, indepentently interpreting results, counseling the patient, care coordination and other
--- NOTE | 2024-12-28 12:35 | PHA.REVIEW2 ---
Pharmacy Admission Review Admission Clinical Review Admission Pharmacy Review: Dog bite of arm (Acute) Cellulitis of arm, left (Acute) Iodinated Contrast Media Allergy (Severe, Verified 12/27/24 22:44) Anaphylaxis sulfamethoxazole (From Bactrim) Allergy (Intermediate, Verified 12/27/24 22:44) hives trimethoprim (From Bactrim) Allergy (Intermediate, Verified 12/27/24 22:44) hives amoxicillin (From Augmentin) Adverse Reaction (Intermediate, Verified 12/27/24 22:44) Hives clavulanic acid (From Augmentin) Adverse Reaction (Intermediate, Verified 12/27/24 22:44) Hives nitrofurantoin Adverse Reaction (Intermediate, Verified 12/27/24 22:44) Hives Sulfa (Sulfonamide Antibiotics) Adverse Reaction (Intermediate, Verified 12/27/24 22:44) Hives Oysters Adverse Reaction (Intermediate, Uncoded 12/27/24 22:44) Vomitting Scallops Adverse Reaction (Mild, Uncoded 12/27/24 22:44) Itchy Throad & Mouth Resuscitation Status Full Code Height 5 ft 5 in Weight 86.4 kg Pharmacy Admission Review Renal Dosing Renal Dosing: BUN 9 mg/dL (7-18) 12/28/24 06:09 Creatinine 0.6 mg/dL (0.55-1.02) 12/28/24 06:09 Medications needing adjustments: Reviewed (CrCl 128.52 mL/min) List of meds needing interventions: Current medications are okay Anticoagulation Anticoagulation: Hgb 13.1 g/dL (11.2-15.7) 12/28/24 06:09 Hct 39.1 % (36.0-46.0) 12/28/24 06:09 Plt Count 236 10^3/uL (130-400) 12/28/24 06:09 Creatinine 0.6 mg/dL (0.55-1.02) 12/28/24 06:09 DVT Prophylaxis: Reviewed Medications: Enoxaparin (40mg daily) Relevant Labs Relevant Labs: Sodium 139 mmol/L (136-145) 12/28/24 06:09 Potassium 3.0 mmol/L (3.5-5.1) L 12/28/24 06:09 Chloride 103 mmol/L (98-107) 12/28/24 06:09 Magnesium 1.8 mg/dL (1.8-2.4) 12/28/24 06:09 Electrolytes, C-Reactive P, ESR: Reviewed (potassium 40mEq PO BID added this afternoon) Cardiac Review Cardiac Review: Blood Pressure 139/88 1119 Blood Pressure 152/91 0722 Blood Pressure 167/111 0247 Blood Pressure 167/111 0156 Blood Pressure 149/94 0146 Blood Pressure 177/109 0113 BP, HR, EF%: Reviewed (HR WNL) List meds needing interventions: Has order for chlorthalidone 25mg daily QTc Review QTc: Reviewed (No EKG on file) IV to PO Switch IV Medications: Reviewed (ciprofloxacin and clindamycin) Home Meds Home Med List reviewed: Reviewed Relevent Home Meds Not ordered & why?: Advair (substituted with Symbicort per pharmacy protocol) Current Meds Current Medication Order Review: Intervened Comments: Added 2nd PRN to albuterol order per pharmacy protocol Discontinued IUD order (from home med list) Changed IV ED access order Pharmacy Antibiotic Review Relevant Labs: Relevant Labs 12/27/24 23:38 Procalcitonin < 0.10 WBC 8.14 10^3/uL (4.4-10.8) 12/28/24 06:09 Procalcitonin < 0.10 ng/mL 12/27/24 23:38 Temperature 36.5 C Temperature 36.4 C Temperature 36.0 C Temperature 36.0 C Temperature 36.3 C Temperature 36.4 C Pharmacy Antibiotic Activity: Abx regimen adjustment (discontinued doxycycline PO per provider) Comments: Patient is on clindamycin and ciprofloxacin, day 1, for cellulitis of left arm due to dog bite. Patient failed outpatient treatment. Doxycycline PO was ordered from home med list. Asked provider if this was needed since patient is now receiving IV antibiotics. Provider asked that the order be discontinued. WBC decreased from 11.68 and blood cultures pending.
[2024-12-28] MEDS: Potassium Chloride 20 MEQ TABCR 40 MEQ PO ×2 (12:37→19:52)
[2024-12-29] MEDS: CIPROFLOXACIN 400 MG/200 ML BAG 200 MG IVPB (01:48)
[2024-12-29] MEDS: CLINDAMYCIN 600 MG/50 ML BAG 100 MG IVPB (05:41)
[2024-12-29 05:45] VITALS: BP 136/95; PULSE 75; RESP 18; TEMP 36.8; O2SAT 98
[2024-12-29 06:53] LABS: HCT 39.5 % (36.0-46.0); HGB 13.3 g/dL (11.2-15.7); MCH 30.4 pg (27.0-33.0); MCHC 33.7 % (32.0-36.0); MCV 90 fL (80-95); MPV 11.6 fL (8.0-11.0); Platelet Count 247 10^3/uL (130-400); RBC 4.38 10^6/uL (3.93-5.22); RDW 13.1 % (11.7-14.6); RDW-SD 43.0 fL; WBC 7.35 10^3/uL (4.4-10.8)
[2024-12-29 07:11] LABS: Magnesium 1.8 mg/dL (1.6-2.6)
[2024-12-29 07:33] LABS: ALT 39 U/L (10-49); AST 33 U/L (<34); Albumin 4.0 g/dL (3.4-5.0); Alkaline Phosphatase 80 U/L (46-116); Anion Gap 10.3 mmol/L (3-11); BUN 10 mg/dL (9-23); Bilirubin, Total 0.60 mg/dL (0.2-1.2); CO2 25.7 mmol/L (20.0-31.0); Calcium 8.9 mg/dL (8.3-10.6); Chloride 104 mmol/L (98-107); Glucose 98 mg/dL (74-106); Potassium 3.4 mmol/L (3.5-5.1); Sodium 140 mmol/L (136-145); Total Protein 6.8 g/dL (5.7-8.2)
[2024-12-29 08:03] VITALS: BP 145/101; PULSE 66; RESP 17; TEMP 37; O2SAT 97
[2024-12-29] MEDS: Potassium Chloride 20 MEQ TABCR 40 MEQ PO ×2 (09:06→11:04)
[2024-12-29] MEDS: Normal Saline Flush 10 ML SYR IVP (09:06)
[2024-12-29] MEDS: Chlorthalidone 25 MG TAB PO (09:06)
--- NOTE | 2024-12-29 09:41 | CHAPLAIN ---
Karla was sitting up in bed talking with family members when I visited. She was very pleasant and easily engaged in conversation. She is here with cellulitis from a dog bit and receiving IV antibiotics. I explained my role and offered support.
--- NOTE | 2024-12-29 10:22 | DSE_ITS ---
Date of service: 12/29/24 Time of Service: 10:23 DS: Diagnosis Discharge Diagnosis (1) Cellulitis of arm, left: Status: Acute (2) Dog bite of arm: Status: Acute (3) HTN (hypertension): Status: Chronic (4) Asthma: Discharge Plan Disposition Patient Disposition: Home Condition: Improving Discharge Details Reason For Visit: Cellulitis Left Arm, Dog Bite Admit Date/Time: 12/28/24 01:19 Admit Provider: Oscar Millan Attending Provider: Oscar Millan Primary Care Provider: Geno Whitfield Hospital Course Hospital Course: This 44-year-old female patient with a past medical history of hypertension not compliant with antihypertensive, and asthma only on PRN albuterol, presented to the ED at [facility] on 12/28/24 for evaluation of a dog bite to the left dorsal forearm late Friday by a startled blind [place] which was her friend's pet; dog's immunizations are up-to-date and tetanus shot reported by patient. The patient failed outpatient oral doxycycline initiated after IV metronidazole and ceftriaxone infusion at [facility]. The small laceration/puncture wounds from the bite had initially improved then worsened redness and swelling around the wound w/o sign of tenosynovitis, fasciitis or sepsis at the time of the evaluation. Blood work was unremarkable; BP on arrival 200/112 improving with home medicine administration. The patient was admitted for observation and to continue treatment with IV ciprofloxacin and IV clindamycin initiated in the ED. The left arm cellulitis improved. The patient remained hemodynamically stable w/o leukocytosis or febrile illness; mild hypokalemia supplemented. The patient developed diarrhea X2 and clindamycin was stopped. The patient will be discharged home on metronidazole, ciprofloxacin and a probiotic. As needed compazine for nausea also ordered. Follow-up with PCP with 7 -10 days of discharge. Discussed with Dr. Valadez Recommendations for Follow Up Recommended tests to be ordered by follow up provider: Home antihypertensive medicines- not taking , PRN ICS/ LABA for asthma- not taking Home Meds and New Rx's Prescriptions: New acetaminophen 325 mg Tablet 650 mg PO Q4H PRN PRNQty: 30 0RF ciprofloxacin HCl [Cipro] 500 mg tablet 500 mg PO BID Qty: 16 0RF metronidazole 500 mg tablet 500 mg PO Q8H Qty: 24 0RF Bio-K plus 50 billion cell capsule,delayed release(DR/EC) 1 cap PO DAILY Qty: 10 0RF Rx Instructions: Take 3 hours apart from oral antibiotic prochlorperazine maleate [Compazine] 5 mg tablet 5 mg PO TID PRNQty: 30 0RF Continued albuterol sulfate 90 mcg/actuation HFA aerosol inhaler 2 puff IH Q6H PRN Mirena 20 mcg/24 hours (5 yrs) 52 mg intrauterine device 1 device IY ONCE fluticasone propion-salmeterol [Advair HFA] 115-21 mcg/actuation HFA aerosol inhaler See Rx Instructions .ROUTE .COMPLEX Qty: 12 4RF Dose Instruction: INHALE 2 PUFFS BY MOUTH TWICE DAILY NEEDED FOR ASTHMA EXACERBATION Rx Instructions: INHALE 2 PUFFS BY MOUTH TWICE DAILY NEEDED FOR ASTHMA EXACERBATION chlorthalidone 15 mg tablet 30 mg PO DAILY Qty: 90 2RF multivitamin [Multi-Day] 1 EACH tablet 1 tab PO DAILY Discontinued doxycycline hyclate 100 mg capsule 100 mg PO BID Discharge Instructions Stand Alone Forms: Portal Information, Nursing Discharge Form Referrals: Geno Whitfield [Primary Care Provider, Medicine] Referral Note: Follow-up within 7-10 days of discharge Activity:: Activity as Tolerated Equipment/Supplies:: No Equipment Needed Diet:: heart healthy Discharge Orders Discharge Orders: Discharge Order (Routine); Ordered 12/29/24 Ordered By: Leidy Lemon DS: Summary Time Spent with Patient providing and/or coordinating discharge services: Greater than 30 minutes Status at Discharge Functional status at discharge: independent ambulation Overall status at discharge: patient is progressing back to baseline Mental Status: mental status grossly normal Speech and Movement: speech and movement normal Mood: congruent mood Affect: normal affect Quality:SDOH Health Related Social Needs: Health related social needs lonely/isolated Health related social needs details no needs Health related social needs details: no needs Exam Narrative Exam Narrative: 44 years ol female patient looking of stated age without acute distress neurologically intact unlabored breathing clear lungs S1-S2 regular abdomen is nondistended soft nontender, no CVA tenderness moves of extremities left upper forearm with mild erythema improving,w/o subcut emphysema, fluctuance or induration- no drainage from puncture wounds from dog bite, right chest bruise from dog scratch w/o subcut emphysema, fluctuance or induration Psych Mental Status: mental status grossly normal Speech and Movement: speech and movement normal Mood: congruent mood Affect: normal affect DS: Data Vitals/I&O Vitals and I&O: Vital Signs Temperature 37.0 C 12/29/24 08:03 Temperature Source Tympanic 12/29/24 08:03 Pulse 66 12/29/24 08:03 Pulse Rhythm Regular 12/28/24 01:56 Respiratory Rate 17 12/29/24 08:03 Respiratory Effort Normal, Non-Labored 12/28/24 01:56 Respiratory Depth Normal 12/28/24 01:56 Respiratory Pattern Normal 12/28/24 01:56 Blood Pressure 145/101 H 12/29/24 08:03 Blood Pressure Mean 115 12/29/24 08:03 Blood Pressure Position Sitting 12/27/24 22:39 Pulse Oximetry 97 12/29/24 08:03 Oxygen Delivery Method Room Air 12/29/24 08:03 Oxygen Flow Rate 0 12/29/24 08:03 Pain Level 0 12/29/24 08:03 Intake & Output 12/28/24 12/28/24 12/29/24 11:59 23:59 11:59 Intake Total 1870 / 2190 320 / 2190 320 / 320 Balance 1870 / 2190 320 / 2190 320 / 320 Weight 86.4 kg 85.3 kg Intake: IV 1320 / 1640 320 / 1640 320 / 320 Oral 550 / 550 Other: Urine Appearance Clear Comment pt independent void in toilet Data Completed and Pending Pending Labs at Discharge: 12/27/24 12/28/24 12/28/24 23:38 01:25 06:09 WBC 11.68 H 8.14 RBC 4.78 4.30 Hgb 14.2 13.1 Hct 42.9 39.1 MCV 90 91 MCH 29.7 30.5 MCHC 33.1 33.5 RDW 13.2 13.2 Plt Count 238 236 MPV 11.4 H 11.5 H Immature Gran % 0.5 Neutrophils % 68.8 Lymphocytes % 17.7 Monocytes % 6.5 Eosinophils % 5.6 Basophils % 0.9 Nucleated RBC % 0.0 Absolute Neutrophils 8.04 H Absolute Lymphocytes 2.07 Absolute Monocytes 0.76 Absolute Eosinophils 0.65 Absolute Basophils 0.11 VBG Lactate 0.9 Sodium 136 139 Potassium 3.6 3.0 L Chloride 99 103 Carbon Dioxide 27.9 26.6 Anion Gap 9.1 9.4 BUN 15 9 Creatinine 0.6 0.6 Est GFR (CKD-EPI 2020) 112.73 112.73 Glucose 96 102 Calcium 8.7 8.1 L Magnesium 1.8 Total Bilirubin 0.5 0.6 AST 29 22 ALT 40 36 Alkaline Phosphatase 102 87 Total Protein 8.2 6.9 Albumin 3.9 3.3 L Procalcitonin < 0.10 Urine Color Urine Clarity Urine pH Ur Specific [place] Urine Protein Urine Ketones Urine Blood Urine Nitrite Urine Bilirubin Urine Urobilinogen Ur Leukocyte Esterase Urine RBC Urine WBC Ur Epithelial Cells Urine Crystals Urine Bacteria Urine Casts Urine Mucus Ur Culture Indicated? Urine Glucose COVID-19 Source Nasopharynx SARS-CoV-2 (PCR) Negative Influenza Type A (PCR) Negative Influenza Type B (PCR) Negative RSV (PCR) Negative 12/28/24 12/29/24 09:20 06:09 WBC 7.35 RBC 4.38 Hgb 13.3 Hct 39.5 MCV 90 MCH 30.4 MCHC 33.7 RDW 13.1 Plt Count 247 MPV 11.6 H Immature Gran % Neutrophils % Lymphocytes % Monocytes % Eosinophils % Basophils % Nucleated RBC % Absolute Neutrophils Absolute Lymphocytes Absolute Monocytes Absolute Eosinophils Absolute Basophils VBG Lactate Sodium 140 Potassium 3.4 L Chloride 104 Carbon Dioxide 25.7 Anion Gap 10.3 BUN 10 Creatinine 0.7 Est GFR (CKD-EPI 2020) 88.98 Glucose 98 Calcium 8.9 Magnesium 1.8 Total Bilirubin 0.60 AST 33 ALT 39 Alkaline Phosphatase 80 Total Protein 6.8 Albumin 4.0 Procalcitonin Urine Color Yellow Urine Clarity Sl Cloudy Urine pH 7.0 Ur Specific [place] 1.015 Urine Protein Negative Urine Ketones Negative Urine Blood Negative Urine Nitrite Negative Urine Bilirubin Negative Urine Urobilinogen 0.2 Ur Leukocyte Esterase Trace H Urine RBC 0-2 Urine WBC 3-5 Ur Epithelial Cells Moderate Urine Crystals Negative Urine Bacteria Few Urine Casts Negative Urine Mucus Negative Ur Culture Indicated? No Urine Glucose Negative COVID-19 Source SARS-CoV-2 (PCR) Influenza Type A (PCR) Influenza Type B (PCR) RSV (PCR) Preliminary micro results at discharge 12/27/24 23:30 Blood Blood Culture - Preliminary NO GROWTH 24 HOURS 12/27/24 23:38 Blood Blood Culture - Preliminary NO GROWTH 24 HOURS PFSH All Active Problems (Updated 12/28/24 @ 01:34 by Oscar Millan) Dog bite of arm (Acute) Cellulitis of arm, left (Acute) HTN (hypertension) (Chronic) Mild intermittent asthma in adult without complication (Acute) 12/2021. MDI Changed to Bedosonide-Formaterol Weight gain (Acute) Fatigue (Acute) IUD (intrauterine device) in place (Acute) 04/05/2019. Mirena IUD inserted. S/P section (Acute 05/25/14) Asthma (Chronic) H/O urinary stone (Chronic) H/O surgical procedure (Chronic) a. scarless breast reductin b. 05/17/2014 Anxiety (Chronic) Medical History Blood pressure elevated without history of HTN (04/26/14) Asthma Diagnosed as and up through college years . Uses rescue inhaler very rarely Hypertension about 5-6yrs ago was Rx for a time then BP normalized and she stopped the Rx . Was due to Stress . Surgical History Elective bilateral breast reduction with Liposuction 2002 Social History Smoking/Tobacco Use Status: Never Smoking risk assessment performed?: Yes Alcohol Intake: current Alcohol Intake frequency: a few times a week Alcohol type: beer, wine and hard liquor Drug use: Never Substance use type: does not use Housing: house Do you feel safe at home: Yes Do you feel safe in your relationship?: Yes Female Reproductive History Menstrual control method: progestin IUCD (Mirena Lot#[id number] EXP APR 2021) and condoms History History 1 Para 1 Hx # Term Pregnancies Multiple births Hx # Pregnancies Ectopic pregnancies AB induced Hx Number of Living Children AB spontaneous Time Spent with Patient Time Spent with Patient: >85 minutes Time was spent: preparing to see the patient(eg.review tests), obtaining and/or reviewing separately otained hiistory, ordering medications,tests, procedures, referring, communicating with other health personal care aid, indepentently interpreting results, counseling the patient, care coordination and other
[2024-12-29] MEDS: Lactobacillus Acidophilus CAP 1 CAP PO (11:04)
[2024-12-29 11:13] VITALS: BP 140/98; PULSE 73; RESP 17; TEMP 36.5; O2SAT 98
--- NOTE | 2024-12-29 12:51 | PDOC.CMDIS ---
Date of service: 12/29/24 Time of Service: 12:51 LACE Index Scoring Tool Questions: Length of Stay (in days): 1 Was the patient admitted via the E.D.?: Yes E.D. Visits: 1 Answers: Total Score: 5 Risk of Readmission: Low Risk Care Management Discharge Plan Reason for Hospitalization: cellulitis Discharge Plan: Karla will be discharged home with no new services. She will follow up with her plan of care as prescribed and transport with a friend/family member. Patient/Family Education Needs: Review of discharge instructions, limitations, follow up plan and discuss Ask me Three SDOH Health Related Social Needs: Health related social needs lonely/isolated Health related social needs details no needs Health related social needs details: no needs
== END 2024-12-29 12:50 | disposition home or self-care (01) ==
LOC: ER 12-28 00:54 → MS 12-28 01:50
PROVIDERS: Admitting Provider Family Medicine; Emergency Provider Student in an Organized Health Care Education/Training Program; PCP Internal Medicine; Responsible Provider Nurse Practitioner Acute Care; Visit Provider Family Medicine
DX: L03.114 Cellulitis of left upper limb (principal); S51.852A Open bite of left forearm, initial encounter; J45.40 Moderate persistent asthma, uncomplicated; I10 Essential (primary) hypertension; W54.0XXA Bitten by dog, initial encounter
CPT/HCPCS: 00123; 36415; 80053; 84145; 85027; 87040; 87637; 96365; 96367; 96375; 99285; J1650; 81003; 81015; 83605; 83735; 85025; 99223; 99239; G0378; J0131; J0737; J0744; J1885